=== PATIENT | female | born 1945 | race Caucasian/White ===

== ENCOUNTER → 2021-12-11 | Outpatient (CLI) | payer MEDICARE, OTHER | LOC: RAD 13:40 | PROVIDERS: ATTEND Internal Medicine Rheumatology | DX: M79.7 Fibromyalgia (principal); M81.0 Age-related osteoporosis without current pathological fracture; M79.606 Pain in leg, unspecified; M25.572 Pain in left ankle and joints of left foot; M25.571 Pain in right ankle and joints of right foot; M79.671 Pain in right foot; M79.672 Pain in left foot ==